=== PATIENT | male | born 1990 | race Caucasian/White ===

== ENCOUNTER 2023-01-25 20:20 | Emergency (ER) | payer OTHER ==
[2023-01-25 20:30] VITALS: TEMP 98.1
[2023-01-25] MEDS ORDERED: FLUORESCEIN STRIPS 1 MG STRIP RIGHT EYE ONE (21:02)
[2023-01-25] MEDS ORDERED: PROPARACAINE 0.5% OPHTH DROPS 15 ML BTL RIGHT EYE STA (21:02)
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
[2023-01-25 21:53] VITALS: BP 134/89; PULSE 93; RESP 18
== END 2023-01-25 21:42 | disposition home or self-care (01) ==
LOC: EC 20:20
DX: S00.81XA Abrasion of other part of head, initial encounter (principal); F17.200 Nicotine dependence, unspecified, uncomplicated; F12.90 Cannabis use, unspecified, uncomplicated; F15.90 Other stimulant use, unspecified, uncomplicated; W50.0XXA Accidental hit or strike by another person, initial encounter
CPT/HCPCS: 99285